=== PATIENT | male | born 1970 | race Caucasian/White ===

== ENCOUNTER 2022-07-08 09:46 | Emergency (ER) | payer BC, SELFPAY ==
--- NOTE | ~2022-07-08 | CT_ITS ---
EXAMINATION: CT ABDOMEN AND PELVIS WITHOUT CONTRAST CLINICAL INFORMATION: Left flank pain radiating to LLQ. COMPARISON: None TECHNIQUE: Multidetector volumetric imaging was performed from the superior aspect of the liver through the pubic symphysis. Sagittal and coronal reformatted images were obtained on the technologist's workstation. This CT examination was performed using dose optimization techniques as appropriate, variously including the following: *Automated exposure control *Adjustment of mA and/or kV according to patient size (this includes techniques or standardized protocols for targeted exams where dose is matched to indication/reason for exam; i.e. extremities or head) *Use of iterative reconstruction technique DLP: 776 mGy-cm FINDINGS: LUNG BASES: The lung bases appear clear, with no evidence of inflammation or nodules. LIVER, GALLBLADDER, AND BILIARY TREE: Fatty infiltration of the liver. Liver appears unremarkable in size and shape. No focal hepatic lesion or biliary ductal dilatation is appreciated. Unremarkable appearance of the gallbladder. PANCREAS: Unremarkable SPLEEN: Unremarkable ADRENAL GLANDS: Unremarkable KIDNEYS AND URETERS: The kidneys appear unremarkable in size, shape, and attenuation. 0.4 cm proximal left ureteral stone with associated mild left hydronephrosis and proximal hydroureter. At least two, 0.3 cm or less, nonobstructing left upper pole collecting system stones. BLADDER: Unremarkable GASTROINTESTINAL TRACT: Question small hiatus hernia. The small and large bowel appear unremarkable. No diverticulosis. Normal-appearing distal ileum and vermiform appendix. ABDOMINAL WALL: No significant hernia is appreciated. LYMPH NODES: No evidence of adenopathy by size criteria. VASCULAR: Unremarkable PELVIC VISCERA: Unremarkable OSSEOUS STRUCTURES: Severe disc space narrowing at L5-S1. CT/CT abdomen pelvis wo IV con IMPRESSION: 0.4 cm proximal left ureteral stone with associated mild left hydronephrosis and proximal hydroureter.
[2022-07-08 09:54] VITALS: BP 157/91; PULSE 77; RESP 14; O2SAT 100; BMI 31.5
--- NOTE | 2022-07-08 10:25 | ED.GENADULT ---
[facility] - General Adult General Chief complaint: Back Pain/Injury Stated complaint: lower back pain Time Seen by Provider: 07/08/22 09:59 Source: patient Mode of arrival: ambulatory History of Present Illness HPI narrative: 51-year-old male with no significant past medical history presenting to the ED complaining of left flank pain radiating to LLQ since yesterday. Admits pain is intermittent in intensity with associated nausea and vomiting. Does report heavy lifting at work, denies injury or trauma or radiation down the lower extremities. Denies fever, chills, dysuria/hematuria, urinary incontinence/retention, testicular/scrotal pain. Took Motrin without relief Onset (ago): hour(s) Related Data Previous Rx's Medication Instructions Recorded hydrocodone 5 mg-acetaminophen 325 1 tab PO Q8H PRN pain, severe 3 07/08/22 mg tablet days #9 tabs ketorolac 10 mg tablet 10 mg PO TID PRN pain 5 days #15 07/08/22 tabs ondansetron 4 mg disintegrating 4 mg PO Q8H PRN nausea and 07/08/22 tablet vomiting #10 tabs tamsulosin 0.4 mg capsule (Flomax) 0.4 mg PO DAILY #14 caps 07/08/22 Allergies Allergy/AdvReac Type Severity Reaction Status Date / Time No Known Allergies Allergy Verified 07/08/22 10:14 Review of Systems Review of Systems: Constitutional: No Fever, No Chills, No Fatigue, No Malaise ENT/Mouth: No No Ear Pain, No Nasal Congestion, No Sinus Pain, No Hoarseness, No sore throat, No Rhinorrhea, No Swallowing Difficulty Eyes: No Eye Pain, No Swelling, No Redness, No Vision Changes Cardiovascular: No Chest Pain, No SOB, No Palpitations Respiratory: No Cough, No Sputum, No Dyspnea Gastrointestinal: + Nausea, + Vomiting, No Diarrhea, No Constipation, + Abdominal pain Genitourinary: No irregular bleeding, No Dysuria, No Urinary Frequency, No Hematuria, No Urinary Incontinence/retention, No Urgency, No Flank Pain Musculoskeletal: No joint pain, No Myalgias, No Joint Swelling Skin: No Skin Lesions, No rash Neuro: No Weakness, No Numbness, No Paresthesias, No Dizziness, No Headache Yes all other systems are reviewed and are negative Constitutional: Constitutional: Reports as per [facility] Past Medical History Attestation statement: The following information was validated with the patient. Social History Social History Advance Directives: No Advance Directives Information Provided: No Physical Exam ED Vital Signs: Vital Signs - 24 hr 07/08/22 09:54 Pulse Rate 77 Respiratory Rate 14 Blood Pressure 157/91 H Pulse Oximetry 100 Oxygen Delivery Method Room Air BMI result Body Mass Index 31.5 Const Other: Diaphoretic, appears in pain General: cooperative, healthy appearing and no acute distress Orientation/consciousness: patient oriented x3 Limitations: no limitations HENMT Head: Yes normal to inspection and Yes atraumatic Ears: hearing grossly normal bilaterally General nose exam: Normal external nose present Face and sinus: Yes normal facial exam Eyes General: appearance normal, both eyes and all related structures EOM: EOMs intact bilaterally Neck Neck: Yes normal visual inspection and Yes no meningeal signs Resp Effort & Inspection: normal respiratory effort and no respiratory distress Auscultation: clear to auscultation bilaterally Cardio Rate: regular rate Heart sounds: S1 normal heart sound present and S2 normal heart sound present GI Inspection: Yes normal to inspection Palpation (GI): Soft to palpation, Tenderness to palpation present (GI) in the LLQ; with no rebound tenderness, no guarding and not rigid General: Yes no CVA tenderness Back/Spine/Pelvis Back: no CVA tenderness Skin Rashes: no rashes Wounds: no wounds Neuro General: patient oriented x3, tone normal and no meningeal signs Gait exam (Neuro): Normal gait present Extrem General: Yes normal to inspection Course Course Course Narrative: -1124--no leukocytosis. BUN, T and D bili & ALT mildly elevated 1221--CT abdomen pelvis wo IV con IMPRESSION: ? 0.4 cm proximal left ureteral stone with associated mild left hydronephrosis and proximal hydroureter. > patient still in significant amount of pain, will give 2nd dose of IV morphine, has been unable to provide urine at this time. Will reach out to urology -1228--spoke with Urology, Dr. De Los Santos, will continue to observe patient/try to get his pain controlled. Receiving 2L IVF, she recommended changing 2nd dose of Morphine to Dilaudid. will continue to monitor -UA not infected -1344--patient reports symptomatic improvement at present. Tolerating p.o. in the ED. Desires to be discharged home. Results discussed with patient including worrisome signs and symptoms and strict return precautions, and when to return to the emergency department. They verbalized understanding and feel safe for discharge at this time. Medical Decision Making MDM Narrative Medical decision making narrative: 51-year-old male with no significant past medical history presenting to the ED complaining of left flank pain radiating to LLQ since yesterday. On exam vital signs stable, diaphoretic/appears in pain, abdomen soft with left lower quadrant tenderness, no rebound or guarding, no CVA tenderness. Concern for renal stone/pyelo vs diverticulitis vs UTI. Musculoskeletal pain on differential. Low suspicion for cauda equina/cord compression or appendicitis. Plan: Labs, UA, CT AP, IVF, pain management Medical Records Medical records reviewed: Yes I reviewed the patient's medical records. Lab Data Lab results reviewed: Yes I reviewed the patient's lab results. Result diagrams: 07/08/22 10:48 07/08/22 10:48 Labs: Lab Results 07/08/22 07/08/22 07/08/22 Range/Units 10:48 10:48 12:42 WBC 7.6 (4.8-10.8) X10*3/uL RBC 5.85 H (4.60-5.80) X10*6/uL Hgb 17.2 (14.0-18.0) g/dl Hct 48.8 (42.0-52.0) % MCV 83.4 (80.0-98.0) fL MCH 29.4 (27.0-33.0) pg MCHC 35.2 (31.0-36.0) g/dl RDW 12.7 (11.0-16.0) % Plt Count 223 (160-400) X10*3/uL MPV 9.0 L (9.4-12.4) fL Immature Gran % (Auto) 0.1 (0.0-0.4) % Neut % (Auto) 75.5 H (45-73) % Lymph % (Auto) 15.9 L (20-40) % [place] % (Auto) 6.9 (2-11) % Eos % (Auto) 1.2 (0-4) % Baso % (Auto) 0.4 (0-2) % Lymph # (Auto) 1.2 (1.2-4.9) X10*3/uL [place] # (Auto) 0.5 (0.1-1.2) X10*3/uL Eos # (Auto) 0.1 (0.0-0.4) X10*3/uL Baso # (Auto) 0.0 (0.0-0.2) X10*3/uL Abs Immat Gran (auto) 0.01 (0.00-0.03) X10*3/uL Absolute Neuts (auto) 5.7 (2.0-8.3) x10*3/uL Absolute Nucleated RBC 0.000 (0.0-0.012) X10*3/uL Nucleated RBC % (auto) 0.0 (0.0-0.2) /100WBC Sodium 137 (135-145) mmol/L Potassium 4.2 (3.3-5.1) mmol/L Chloride 102 (96-108) mmol/L Carbon Dioxide 24 (22-29) mmol/L Anion Gap 15 (12-20) BUN 18 H (9-16) mg/dL Creatinine 1.11 (0.5-1.4) mg/dL Estim Creat Clear Calc 91.1 Estimated GFR > 60 Random Glucose 126 H (60-115) mg/dL Calcium 9.7 (8.4-10.2) mg/dL Magnesium 2.0 (1.6-2.6) mg/dL Total Bilirubin 1.9 H (0.0-1.0) mg/dL Direct Bilirubin 0.6 H (0.0-0.5) mg/dL AST 30 (5-37) U/L ALT 62 H (0-40) U/L Alkaline Phosphatase 80 (39-117) U/L Total Protein 7.6 (6.5-8.0) g/dL Albumin 4.6 (3.5-5.0) g/dL Lipase 18 (8-78) U/L Urine Color Yellow Urine Appearance Clear Urine pH 7.0 (5.0-9.0) Ur Specific [place] 1.020 (1.005-1.025) Urine Protein 30 (1+) H (Neg-Trace) mg/dL Urine Glucose (UA) Negative (Negative) mg/dL Urine Ketones Negative (Negative) mg/dL Urine Blood Large (3+) H (Negative) Urine Nitrite Negative (Negative) Ur Leukocyte Esterase Small (1+) H (Negative) Urine RBC >20 H (0-2) /HPF Urine WBC 0-5 (0-5) /HPF Ur Squamous Epith Cells 0-2 (0-2) /HPF Urine Bacteria None Seen (None Seen) Hyaline Casts 3-5 (0-2) /LPF Discharge Plan Discharge Clinical Impression: Left ureteral calculus Patient Disposition: Home, Self-Care Instructions: Ureteral Stones (ED) Additional Instructions: You have a small stone in her left proximal ureter with some hydronephrosis and hydroureter This should pass on its own Ketorolac is an anti-inflammatory/pain medication, take with food. Zofran as an antinausea medication, take as needed Flomax to help dilate the ureter [place] was not opiate pain medication, take only when pain is severe for the next 3 days. UA to have close follow-up with Urology If symptoms persist or worsen, pain becomes severe/unbearable, your vomiting, high fever are unable to eat or drink return to the ED Prescriptions: New ketorolac 10 mg tablet 10 mg PO TID PRN (Reason: pain) 5 Days Qty: 15 0RF hydrocodone-acetaminophen 5-325 mg tablet 1 tab PO Q8H PRN (Reason: pain, severe) 3 Days Qty: 9 0RF Rx Instructions: Partial Fill upon patient request. tamsulosin [Flomax] 0.4 mg capsule 0.4 mg PO DAILY Qty: 14 0RF ondansetron 4 mg tablet,disintegrating 4 mg PO Q8H PRN (Reason: nausea and vomiting) Qty: 10 0RF Referrals: [facility] [Provider Group] - 1 week
[2022-07-08 10:55] LABS: MANUAL DIFF FLAG NO
[2022-07-08] MEDS: Morphine Sulfate 2 MG/ML CARTRIDGE IVPUSH (10:56)
[2022-07-08] MEDS: Ketorolac Tromethamine 15 MG/ML VIAL IVPUSH ×2 (10:56→11:29)
[2022-07-08] MEDS: ondansetron HCL 4 MG/2 ML VIAL IVPUSH (10:56)
[2022-07-08] MEDS: 0.9 % Sodium Chloride 1,000 ML 999 ML IV ×2 (10:57→12:39)
[2022-07-08 10:58] LABS: Basophils Percent Auto 0.4 % (0-2); Eosinophils Absolute Auto 0.1 X10*3/uL (0.0-0.4); Eosinophils Percent Auto 1.2 % (0-4); Hematocrit 48.8 % (42.0-52.0); Hemoglobin 17.2 g/dl (14.0-18.0); Imm Gran Abs Auto 0.01 X10*3/uL (0.00-0.03); Imm Gran Pct Auto 0.1 % (0.0-0.4); Lymphocytes Absolute Auto 1.2 X10*3/uL (1.2-4.9); Lymphocytes Percent Auto 15.9 % (20-40); Mean Corpuscular HGB Conc 35.2 g/dl (31.0-36.0); Mean Corpuscular Hemoglobin 29.4 pg (27.0-33.0); Mean Corpuscular Volume 83.4 fL (80.0-98.0); Monocytes Absolute Auto 0.5 X10*3/uL (0.1-1.2); Monocytes Percent Auto 6.9 % (2-11); Neutrophils Absolute Auto 5.7 x10*3/uL (2.0-8.3); Neutrophils Percent Auto 75.5 % (45-73); Platelet Count 223 X10*3/uL (160-400); Red Blood Count 5.85 X10*6/uL (4.60-5.80); Red Cell Distribution Width 12.7 % (11.0-16.0); White Blood Count 7.6 X10*3/uL (4.8-10.8)
[2022-07-08 11:15] LABS: Alanine Aminotransferase 62 U/L (0-40); Albumin Level 4.6 g/dL (3.5-5.0); Alkaline Phosphatase 80 U/L (39-117); Anion Gap 15 (12-20); Aspartate Amino Transferase 30 U/L (5-37); Bilirubin Direct 0.6 mg/dL (0.0-0.5); Bilirubin Total 1.9 mg/dL (0.0-1.0); Blood Urea Nitrogen 18 mg/dL (9-16); Calcium 9.7 mg/dL (8.4-10.2); Carbon Dioxide 24 mmol/L (22-29); Chloride 102 mmol/L (96-108); Creatinine Clr Calc Pharmacy 91.1; Estimated Glomerular Filt Rate > 60; Glucose Random 126 mg/dL (60-115); Lipase 18 U/L (8-78); Potassium 4.2 mmol/L (3.3-5.1); Sodium 137 mmol/L (135-145); Total Protein 7.6 g/dL (6.5-8.0)
[2022-07-08] MEDS: HYDROmorphone HCl 1 MG/ML SYRINGE IVPUSH (12:39)
[2022-07-08] MEDS: Tamsulosin HCL 0.4 MG CAPSULE PO (12:40)
[2022-07-08 12:51] LABS: Appearance Urine Clear; Color Urine Yellow; Glucose Urine UA Negative (Negative); Leukocyte Esterase Urine Small (1+) (Negative); Nitrite Urine Negative (Negative); UMIC TRIGGER UACC YES; Urine Blood Large (3+) (Negative); Urine Ketones Negative (Negative); Urine Protein 30 (1+) mg/dL (Neg-Trace)
[2022-07-08 13:03] LABS: Bacteria Urine None Seen (None Seen); RBC Urine >20 /HPF (0-2); Squamous Epithelial Cell Urine 0-2 /HPF (0-2); UACC Culture Trigger YES; WBC Urine 0-5 /HPF (0-5)
--- NOTE | 2022-07-08 13:45 | PC.NURSE ---
Pt states pain is much better, trey seth provided
[2022-07-08 13:50] VITALS: BP 157/91; PULSE 77; RESP 16; O2SAT 99
== END 2022-07-08 13:56 | disposition home or self-care (01) ==
PROVIDERS: Physician Assistant; Emergency Provider Emergency Medicine
DX: N13.2 Hydronephrosis with renal and ureteral calculous obstruction (principal); R10.9 Unspecified abdominal pain
CPT/HCPCS: 36415; 74176; 80048; 80076; 81001; 83690; 83735; 85025; 87086; 96361; 96374; 96375; 96376; 99283; 99284; J1170; J1885; J2270; J2405

== ENCOUNTER 2022-09-07 11:41 | Emergency (ER) | payer BC, SELFPAY ==
--- NOTE | ~2022-09-07 | XR_ITS ---
EXAMINATION: XR CHEST CLINICAL INFORMATION: Cough, chest pain and shortness of breath COMPARISON: None TECHNIQUE: 2 views of the chest were obtained. FINDINGS: The lungs are well-expanded and clear of acute pneumonic process. The heart size and pulmonary vascularity is normal. No gross bony abnormality seen. XR/XR chest 2V IMPRESSION: Unremarkable chest exam.
[2022-09-07 11:43] VITALS: BP 150/99; PULSE 114; RESP 18; TEMP 38.7; O2SAT 98; BMI 37.8
--- NOTE | 2022-09-07 11:52 | ED.URI ---
HPI - URI/Sore Throat General Chief Complaint: Upper Respiratory Symptoms <Zack Bunn MD - Last Filed: 09/07/22 11:54> Stated Complaint: Flu Symptoms <Zack Bunn MD - Last Filed: 09/07/22 11:54> Time Seen by Provider: 09/07/22 12:59 <Zack Bunn MD - Last Filed: 09/07/22 11:54> Source: patient and family <SAMMI Haynes - Last Filed: 09/07/22 14:23> Mode of arrival: ambulatory <SAMMI Haynes Last Filed: 09/07/22 14:23> Limitations: no limitations <SAMMI Haynes Last Filed: 09/07/22 14:23> History of Present Illness HPI Narrative: 52-year-old male who is presenting to the ED with complaints of generalized fatigue /malaise, fevers, chills, sore throat/nasal congestion/ rhinorrhea, cough, chest pain only with coughing, shortness of breath, nausea /vomiting for the past 3 days worse today. his ex- who is at bedside reports she was recently diagnosed with RSV. Although she has not been around him. He reports he tried to eat some crackers this morning although threw that up as well. Denies any other sick contacts. Denies recent travel. Denies any dyspnea on exertion, orthopnea, palpitations, abdominal pain, diarrhea constipation, lower extremity edema or calf tenderness or any other symptoms complaints or concerns at this time. <SAMMI Haynes - Last Filed: 09/07/22 14:23> MD elicited complaint: fever, cough, sore throat, rhinorrhea and nasal congestion <SAMMI Haynes Last Filed: 09/07/22 14:23> Onset (ago): day(s) (3) <SAMMI Haynes Last Filed: 09/07/22 14:23> Consistency: constant and progressively worsening <SAMMI Haynes Last Filed: 09/07/22 14:23> Severity: moderate <SAMMI Haynes Last Filed: 09/07/22 14:23> Description of mucous: clear, watery and yellow <SAMMI Haynes Last Filed: 12/21/22 14:23> Able to tolerate fluids by mouth: Yes <SAMMI Haynes - Last Filed: 09/07/22 14:23> Exacerbating factors: swallowing <SAMMI Haynes Last Filed: 09/07/22 14:23> Relieving factors: nothing <SAMMI Haynes - Last Filed: 09/07/22 14:23> Context: sick contacts <SAMMI Haynes - Last Filed: 09/07/22 14:23> Associated symptoms: fever, chills, myalgias, headache, rhinorrhea, nasal congestion, sore throat, cough, chest pain, shortness of breath, nausea and vomiting <SAMMI Haynes - Last Filed: 09/07/22 14:23> Treatments prior to arrival: none <SAMMI Haynes Last Filed: 09/07/22 14:23> Related Data Home Medications: Previous Rx's Medication Instructions Recorded hydrocodone 5 mg-acetaminophen 325 1 tab PO Q8H PRN pain, severe 3 07/08/22 mg tablet days #9 tabs ketorolac 10 mg tablet 10 mg PO TID PRN pain 5 days #15 07/08/22 tabs ondansetron 4 mg disintegrating 4 mg PO Q8H PRN nausea and 07/08/22 tablet vomiting #10 tabs tamsulosin 0.4 mg capsule (Flomax) 0.4 mg PO DAILY #14 caps 07/08/22 acetaminophen 500 mg tablet 1,000 mg PO QID PRN fever or pain 09/07/22 (Tylenol Extra Strength) #14 tabs ibuprofen 800 mg tablet 800 mg PO Q8H PRN pain #14 tabs 09/07/22 ondansetron HCl 4 mg tablet 4 mg PO Q8H #14 tabs 09/07/22 <Zack Bunn MD - Last Filed: 09/07/22 11:54> Allergies/Adverse Reactions: Allergies Allergy/AdvReac Type Severity Reaction Status Date / Time No Known Allergies Allergy Verified 07/08/22 10:14 <Zack Bunn MD - Last Filed: 09/07/22 11:54> Review of Systems Review of Systems: Constitutional : + Fevers/ chills/fatigue/malaise, No Weight loss, No Night Sweatse ENT/Mouth : No Hearing loss, No Ear Pain, + Nasal Congestion, No Sinus Pain, No Hoarseness, + sore throat, + Rhinorrhea, No Swallowing Difficulty Eyes: No Eye Pain, No Swelling, No Redness, No Foreign Body, No Discharge, No Vision Changes Cardiovascular : No Chest Pain, No SOB, No Dyspnea on Exertion, No Orthopnea, No Edema, No Palpitations Respiratory : + Cough, + Sputum, No Wheezing, No Smoke Exposure, No Dyspnea Gastrointestinal : + Nausea, + Vomiting, No Diarrhea, No Constipation, No abdominal Pain, No Hematochezia, No Melena Genitourinary : no irregular bleeding, No Dysuria, No Urinary Frequency, No Hematuria, No Urinary Incontinence, No Urgency, No Flank Pain, No Urinary Flow Changes, No Hesitancy Musculoskeletal : No joint pain, + Myalgias, No Joint Swelling Skin : No Skin Lesions, No rash Neuro : No Weakness, No Numbness, No Paresthesias, No Loss of Consciousness, No Dizziness, No Headache Psych : No Anxiety/Panic, No Depression, No SI/HI/AH/VH, No Social Issues, Heme/Lymph: No Bruising, No Bleeding,No Lymphadenopathy Endocrine : No Polyuria, No Polydipsia, No Temperature Intolerance <SAMMI Haynes - Last Filed: 09/07/22 14:23> Yes all other systems are reviewed and are negative <SAMMI Haynes - Last Filed: 09/07/22 14:23> [facility] Past Medical History Attestation statement: The following information was validated with the patient. <SAMMI Haynes - Last Filed: 09/07/22 14:23> Source: old records reviewed, obtained from family and nursing notes reviewed <SAMMI Haynes - Last Filed: 09/07/22 14:23> Social History Social History: Social History Advance Directives: No Advance Directives Information Provided: Yes <Zack Bunn MD - Last Filed: 09/07/22 11:54> Physical Exam Vital Signs: Vital Signs: Last Vital Signs Temp 101.6 F H 09/07/22 11:43 Pulse 114 H 09/07/22 11:43 Resp 18 09/07/22 11:43 BP 150/99 H 09/07/22 11:43 Pulse Ox 98 09/07/22 11:43 O2 Del Method 09/07/22 11:43 BMI result Body Mass Index 37.8 <Zack Bunn MD - Last Filed: 09/07/22 11:54> Vital Signs: Last Vital Signs Temp 101.6 F H 09/07/22 11:43 Pulse 114 H 09/07/22 11:43 Resp 18 09/07/22 11:43 BP 150/99 H 09/07/22 11:43 Pulse Ox 98 09/07/22 11:43 O2 Del Method 09/07/22 11:43 BMI result Body Mass Index 37.8 vital signs have been reviewed as normal and appeared to be correct. Blood pressure 150/99. Heart rate 114. Respiration rate normal. Temperature 101.6. Oxygen saturation normal. <SAMMI Haynes - Last Filed: 09/07/22 14:23> Appearance: Alert. Oriented X3. No acute distress. Head: Normal external exam. Normocephalic. Atraumatic. Eyes: PERRLA. EOMI. Conjunctiva and sclera normal. Eyelids normal. ENT: EAC normal. TM's Normal. Pharynx normal. Uvula midline. Moist mucous membranes. No lesions/ulcerations or masses noted on the tongue. Normal voice. No trismus noted. No drooling noted. No muffled voice noted. Neck: Normal inspection. Neck supple. FROM. No adenopathy. Thyroid Normal. No tracheal deviation noted. No crepitus is noted. No meningeal signs. No neck mass noted. No signs of trauma noted. CVS: Normal heart rate and rhythm. Heart sound normal. Pulses normal throughout. No murmurs/rales/gallops. Respiratory: No respiratory distress. Painless inspiration. Breath sounds normal. No wheezes/rales/rhonchi noted. Chest nontender. No crepitus is noted. No accessory muscle usage noted or decreased air movement noted. No signs of trauma. Abdomen: Soft and nontender. Nondistended. No guarding. No rigidity. Bowel sounds normal in all 4 quadrants. No distention noted. No organomegaly noted. No visible injury noted. No rebound tenderness. Negative Rovsing sign. Negative obturator's sign. Negative psoas sign. Negative Skinner sign. Back: No CVA tenderness. Full range of motion noted. Nontender. No signs of trauma. Patient neuro intact bilaterally and distally on all 4 extremities. Patient's reflexes intact bilaterally and distally on all 4 extremities. No rashes/lesion/induration/fluctuance or signs of infection noted. Skin: Skin warm and dry. Normal skin color. Normal skin turgor. No rashes/lesions/lacerations noted. Extremities: No lower extremity edema. No calf tenderness is noted. Extremities exhibit normal range of motion and nontender. Neuro: Oriented X 3. No motor deficit. No sensory deficit. Reflexes normal. Normal steady gait. No focal neuro deficits noted. CN's II-XII intact bilaterally? Vascular: + radial pulses/+ 2 distal pedal pulses/+2 dorsalis pedis b/l. Normal cap refill. No cyanosis noted to upper extremity nails and lower extremity toes nails. <SAMMI Haynes - Last Filed: 09/07/22 14:23> Course Course Course Narrative: RME: 52-year-old male who presents emergency department for evaluation of 3 days of flu-like illness with symptoms including fever, chills, sore throat, cough, chest pain, shortness of breath. Patient is experiencing chest pain with coughing. Vital signs revealed an elevated BP, tachycardia and fever of 101.6. I ordered chest x-ray two view to rule out pneumonia, RSV, COVID, influenza and rapid strep testing. Patient's fever was treated with ibuprofen 800 mg orally. Patient will be placed back in the waiting room. He was given a mask and instructed to wear this at all times. <Zack Bunn MD - Last Filed: 09/07/22 11:54> Reevaluation(s) Reevaluation #1: 52-year-old male who is presenting to the ED with complaints of generalized fatigue /malaise, fevers, chills, sore throat/nasal congestion/ rhinorrhea, cough, chest pain only with coughing, shortness of breath, nausea /vomiting for the past 3 days worse today. his ex- who is at bedside reports she was recently diagnosed with RSV. Although she has not been around him. He reports he tried to eat some crackers this morning although threw that up as well. Denies any other sick contacts. Denies recent travel. Denies any dyspnea on exertion, orthopnea, palpitations, abdominal pain, diarrhea constipation, lower extremity edema or calf tenderness or any other symptoms complaints or concerns at this time. Plan: will obtain labs and provide a L of IV fluids patient tested positive when he was tested outside in the waiting room for influenza A. Negative for COVID and RSV. Chest x-ray is also within normal limits no acute processes noted. <SAMMI Haynes - Last Filed: 09/07/22 14:23> Time: 13:20 <SAMMI Haynse - Last Filed: 09/07/22 14:23> Reevaluation #2: Labs reviewed patient's total bilirubin 2.1. ALT 53. Otherwise all other labs are within normal limits. Patient positive for influenza A. Negative for COVID/RSV. Patient negative for strep. Chest x-ray within normal limits no acute processes noted. Therefore at this time patient can be discharged with symptomatic treatment as patient is tolerating p.o. at this time instructions return if any new or worsening symptoms and to follow up with primary care provider. Patient understands agrees with this plan. <SAMMI Haynes - Last Filed: 09/07/22 14:23> Time: 14:18 <SAMMI Haynes - Last Filed: 09/07/22 14:23> Medications Administered Generic Name Dose Route Start Last Admin Trade Name Freq PRN Reason Stop Dose Admin Sodium Chloride 1,000 mls @ 999 mls/hr 09/07/22 13:30 09/07/22 13:35 Ns IVCONT 09/07/22 14:30 999 mls/hr .Q1H1M SAEID Administration Discontinued Medications Generic Name Dose Route Start Last Admin Trade Name Freq PRN Reason Stop Dose Admin Ibuprofen 800 mg 09/07/22 11:50 09/07/22 11:53 Ibuprofen 800 Mg Tablet PO 09/07/22 11:51 800 mg ONCE STA Administration Ondansetron HCl 4 mg 09/07/22 13:18 09/07/22 13:33 Ondansetron Hcl 4 Mg/2 Ml Vial IVPUSH 09/07/22 13:19 4 mg ONCE ONE Administration <Zack Bunn MD - Last Filed: 09/07/22 11:54> Medications Administered Generic Name Dose Route Start Last Admin Trade Name Freq PRN Reason Stop Dose Admin Sodium Chloride 1,000 mls @ 999 mls/hr 09/07/22 13:30 09/07/22 13:35 Ns IVCONT 09/07/22 14:30 999 mls/hr .Q1H1M SAEID Administration Discontinued Medications Generic Name Dose Route Start Last Admin Trade Name Freq PRN Reason Stop Dose Admin Ibuprofen 800 mg 09/07/22 11:50 09/07/22 11:53 Ibuprofen 800 Mg Tablet PO 09/07/22 11:51 800 mg ONCE STA Administration Ondansetron HCl 4 mg 09/07/22 13:18 09/07/22 13:33 Ondansetron Hcl 4 Mg/2 Ml Vial IVPUSH 09/07/22 13:19 4 mg ONCE ONE Administration <SAMMI Haynes - Last Filed: 09/07/22 14:23> Medical Decision Making Lab Data MDM Lab Attestation statement: I reviewed the patient's lab results. <SAMMI Haynes - Last Filed: 09/07/22 14:23> Result Diagrams: : 09/07/22 13:26 09/07/22 13:26 <Zack Bunn MD - Last Filed: 09/07/22 11:54> Labs: Lab Results 09/07/22 09/07/22 09/07/22 Range/Units 11:49 11:49 13:26 WBC 7.1 (4.8-10.8) X10*3/uL RBC 5.78 (4.60-5.80) X10*6/uL Hgb 16.9 (14.0-18.0) g/dl Hct 48.8 (42.0-52.0) % MCV 84.4 (80.0-98.0) fL MCH 29.2 (27.0-33.0) pg MCHC 34.6 (31.0-36.0) g/dl RDW 13.0 (11.0-16.0) % Plt Count 181 (160-400) X10*3/uL MPV 8.9 L (9.4-12.4) fL Immature Gran % (Auto) 0.3 (0.0-0.4) % Neut % (Auto) 81.8 H (45-73) % Lymph % (Auto) 8.4 L (20-40) % Surry % (Auto) 8.4 (2-11) % Eos % (Auto) 0.7 (0-4) % Baso % (Auto) 0.4 (0-2) % Lymph # (Auto) 0.6 L (1.2-4.9) X10*3/uL [place]ry # (Auto) 0.6 (0.1-1.2) X10*3/uL Eos # (Auto) 0.1 (0.0-0.4) X10*3/uL Baso # (Auto) 0.0 (0.0-0.2) X10*3/uL Abs Immat Gran (auto) 0.02 (0.00-0.03) X10*3/uL Absolute Neuts (auto) 5.8 (2.0-8.3) x10*3/uL Absolute Nucleated RBC 0.000 (0.0-0.012) X10*3/uL Nucleated RBC % (auto) 0.0 (0.0-0.2) /100WBC PT (10.0-13.1) SEC INR (0.9-1.1) Sodium (135-145) mmol/L Potassium (3.3-5.1) mmol/L Chloride (96-108) mmol/L Carbon Dioxide (22-29) mmol/L Anion Gap (12-20) BUN (9-16) mg/dL Creatinine (0.5-1.4) mg/dL Estim Creat Clear Calc Estimated GFR Random Glucose (60-115) mg/dL Calcium (8.4-10.2) mg/dL Magnesium (1.6-2.6) mg/dL Total Bilirubin (0.0-1.0) mg/dL AST (5-37) U/L ALT (0-40) U/L Alkaline Phosphatase (39-117) U/L Total Protein (6.5-8.0) g/dL Albumin (3.5-5.0) g/dL Influenza Type A (PCR) POSITIVE A (Negative) Influenza Type B (PCR) NEGATIVE (Negative) RSV RNA Qual (PCR) NEGATIVE (Negative) SARS-CoV-2 RNA (RT-PCR) NEGATIVE (Negative) S. pyogenes GrpA MANUEL Negative (Negative) 09/07/22 09/07/22 Range/Units 13:26 13:26 WBC (4.8-10.8) X10*3/uL RBC (4.60-5.80) X10*6/uL Hgb (14.0-18.0) g/dl Hct (42.0-52.0) % MCV (80.0-98.0) fL MCH (27.0-33.0) pg MCHC (31.0-36.0) g/dl RDW (11.0-16.0) % Plt Count (160-400) X10*3/uL MPV (9.4-12.4) fL Immature Gran % (Auto) (0.0-0.4) % Neut % (Auto) (45-73) % Lymph % (Auto) (20-40) % Surry % (Auto) (2-11) % Eos % (Auto) (0-4) % Baso % (Auto) (0-2) % Lymph # (Auto) (1.2-4.9) X10*3/uL Surry # (Auto) (0.1-1.2) X10*3/uL Eos # (Auto) (0.0-0.4) X10*3/uL Baso # (Auto) (0.0-0.2) X10*3/uL Abs Immat Gran (auto) (0.00-0.03) X10*3/uL Absolute Neuts (auto) (2.0-8.3) x10*3/uL Absolute Nucleated RBC (0.0-0.012) X10*3/uL Nucleated RBC % (auto) (0.0-0.2) /100WBC PT 12.9 (10.0-13.1) SEC INR 1.1 (0.9-1.1) Sodium 135 (135-145) mmol/L Potassium 4.2 (3.3-5.1) mmol/L Chloride 102 (96-108) mmol/L Carbon Dioxide 25 (22-29) mmol/L Anion Gap 12 (12-20) BUN 10 (9-16) mg/dL Creatinine 0.81 (0.5-1.4) mg/dL Estim Creat Clear Calc 119.0 Estimated GFR > 60 Random Glucose 103 (60-115) mg/dL Calcium 9.3 (8.4-10.2) mg/dL Magnesium 1.8 (1.6-2.6) mg/dL Total Bilirubin 2.1 H (0.0-1.0) mg/dL AST 24 (5-37) U/L ALT 53 H (0-40) U/L Alkaline Phosphatase 92 (39-117) U/L Total Protein 7.4 (6.5-8.0) g/dL Albumin 4.6 (3.5-5.0) g/dL Influenza Type A (PCR) (Negative) Influenza Type B (PCR) (Negative) RSV RNA Qual (PCR) (Negative) SARS-CoV-2 RNA (RT-PCR) (Negative) S. pyogenes GrpA MANUEL (Negative) <Zack Bunn MD - Last Filed: 09/07/22 11:54> Lab Results 09/07/22 09/07/22 09/07/22 Range/Units 11:49 11:49 13:26 WBC 7.1 (4.8-10.8) X10*3/uL RBC 5.78 (4.60-5.80) X10*6/uL Hgb 16.9 (14.0-18.0) g/dl Hct 48.8 (42.0-52.0) % MCV 84.4 (80.0-98.0) fL MCH 29.2 (27.0-33.0) pg MCHC 34.6 (31.0-36.0) g/dl RDW 13.0 (11.0-16.0) % Plt Count 181 (160-400) X10*3/uL MPV 8.9 L (9.4-12.4) fL Immature Gran % (Auto) 0.3 (0.0-0.4) % Neut % (Auto) 81.8 H (45-73) % Lymph % (Auto) 8.4 L (20-40) % Surry % (Auto) 8.4 (2-11) % Eos % (Auto) 0.7 (0-4) % Baso % (Auto) 0.4 (0-2) % Lymph # (Auto) 0.6 L (1.2-4.9) X10*3/uL Surry # (Auto) 0.6 (0.1-1.2) X10*3/uL Eos # (Auto) 0.1 (0.0-0.4) X10*3/uL Baso # (Auto) 0.0 (0.0-0.2) X10*3/uL Abs Immat Gran (auto) 0.02 (0.00-0.03) X10*3/uL Absolute Neuts (auto) 5.8 (2.0-8.3) x10*3/uL Absolute Nucleated RBC 0.000 (0.0-0.012) X10*3/uL Nucleated RBC % (auto) 0.0 (0.0-0.2) /100WBC PT (10.0-13.1) SEC INR (0.9-1.1) Sodium (135-145) mmol/L Potassium (3.3-5.1) mmol/L Chloride (96-108) mmol/L Carbon Dioxide (22-29) mmol/L Anion Gap (12-20) BUN (9-16) mg/dL Creatinine (0.5-1.4) mg/dL Estim Creat Clear Calc Estimated GFR Random Glucose (60-115) mg/dL Calcium (8.4-10.2) mg/dL Magnesium (1.6-2.6) mg/dL Total Bilirubin (0.0-1.0) mg/dL AST (5-37) U/L ALT (0-40) U/L Alkaline Phosphatase (39-117) U/L Total Protein (6.5-8.0) g/dL Albumin (3.5-5.0) g/dL Influenza Type A (PCR) POSITIVE A (Negative) Influenza Type B (PCR) NEGATIVE (Negative) RSV RNA Qual (PCR) NEGATIVE (Negative) SARS-CoV-2 RNA (RT-PCR) NEGATIVE (Negative) S. pyogenes GrpA MANUEL Negative (Negative) 09/07/22 09/07/22 Range/Units 13:26 13:26 WBC (4.8-10.8) X10*3/uL RBC (4.60-5.80) X10*6/uL Hgb (14.0-18.0) g/dl Hct (42.0-52.0) % MCV (80.0-98.0) fL MCH (27.0-33.0) pg MCHC (31.0-36.0) g/dl RDW (11.0-16.0) % Plt Count (160-400) X10*3/uL MPV (9.4-12.4) fL Immature Gran % (Auto) (0.0-0.4) % Neut % (Auto) (45-73) % Lymph % (Auto) (20-40) % Surry % (Auto) (2-11) % Eos % (Auto) (0-4) % Baso % (Auto) (0-2) % Lymph # (Auto) (1.2-4.9) X10*3/uL Surry # (Auto) (0.1-1.2) X10*3/uL Eos # (Auto) (0.0-0.4) X10*3/uL Baso # (Auto) (0.0-0.2) X10*3/uL Abs Immat Gran (auto) (0.00-0.03) X10*3/uL Absolute Neuts (auto) (2.0-8.3) x10*3/uL Absolute Nucleated RBC (0.0-0.012) X10*3/uL Nucleated RBC % (auto) (0.0-0.2) /100WBC PT 12.9 (10.0-13.1) SEC INR 1.1 (0.9-1.1) Sodium 135 (135-145) mmol/L Potassium 4.2 (3.3-5.1) mmol/L Chloride 102 (96-108) mmol/L Carbon Dioxide 25 (22-29) mmol/L Anion Gap 12 (12-20) BUN 10 (9-16) mg/dL Creatinine 0.81 (0.5-1.4) mg/dL Estim Creat Clear Calc 119.0 Estimated GFR > 60 Random Glucose 103 (60-115) mg/dL Calcium 9.3 (8.4-10.2) mg/dL Magnesium 1.8 (1.6-2.6) mg/dL Total Bilirubin 2.1 H (0.0-1.0) mg/dL AST 24 (5-37) U/L ALT 53 H (0-40) U/L Alkaline Phosphatase 92 (39-117) U/L Total Protein 7.4 (6.5-8.0) g/dL Albumin 4.6 (3.5-5.0) g/dL Influenza Type A (PCR) (Negative) Influenza Type B (PCR) (Negative) RSV RNA Qual (PCR) (Negative) SARS-CoV-2 RNA (RT-PCR) (Negative) S. pyogenes GrpA MANUEL (Negative) <SAMMI Haynes - Last Filed: 09/07/22 14:23> Independent Interpretation I performed an independent interpretation of an: Plain X-Ray <SAMMI Haynes - Last Filed: 09/07/22 14:23> Interpretation: Chest x-ray FINDINGS: The lungs are well-expanded and clear of acute pneumonic process. The heart size and pulmonary vascularity is normal. No gross bony abnormality seen. XR/XR chest 2V IMPRESSION: Unremarkable chest exam. <SAMMI Haynes - Last Filed: 09/07/22 14:23> Radiology Impression Discussion of test interpretation with radiology: I have reviewed the radiologist's reading. <SAMMI Haynes - Last Filed: 09/07/22 14:23> Independent Historian Clinical information obtained from an independent historian. History obtained from or confirmed by: Spouse <SAMMI Haynes - Last Filed: 09/07/22 14:23> Discharge Plan Discharge Clinical Impression: Influenza A <Zack Bunn MD - Last Filed: 09/07/22 11:54> Patient Disposition: Home, Self-Care <Zack Bunn MD - Last Filed: 09/07/22 11:54> Instructions: Influenza (ED), Droplet Precautions (ED) <Zack Bunn MD - Last Filed: 09/07/22 11:54> Prescriptions: New ibuprofen 800 mg tablet 800 mg PO Q8H PRN (Reason: pain) Qty: 14 0RF acetaminophen [Tylenol Extra Strength] 500 mg tablet 1,000 mg PO QID PRN (Reason: fever or pain) Qty: 14 0RF ondansetron HCl 4 mg tablet 4 mg PO Q8H Qty: 14 0RF No Action ketorolac 10 mg tablet 10 mg PO TID PRN (Reason: pain) 5 Days Qty: 15 0RF hydrocodone-acetaminophen 5-325 mg tablet 1 tab PO Q8H PRN (Reason: pain, severe) 3 Days Qty: 9 0RF Rx Instructions: Partial Fill upon patient request. tamsulosin [Flomax] 0.4 mg capsule 0.4 mg PO DAILY Qty: 14 0RF ondansetron 4 mg tablet,disintegrating 4 mg PO Q8H PRN (Reason: nausea and vomiting) Qty: 10 0RF <Zack Bunn MD - Last Filed: 09/07/22 11:54> Referrals: Physician,Unknown J [Primary Care Provider] - ( your PCP) <Zack Bunn MD - Last Filed: 09/07/22 11:54> Stand Alone Forms: Work/School Release <Zack Bunn MD - Last Filed: 09/07/22 11:54> Print Language: Nicaraguan <Zack Bunn MD - Last Filed: 09/07/22 11:54>
[2022-09-07] MEDS: Ibuprofen 800 MG TABLET PO (11:53)
[2022-09-07 12:25] LABS: Strep A Nucleic Acid Negative (Negative)
[2022-09-07 12:47] LABS: Influenza A PCR POSITIVE (Negative); Influenza B PCR NEGATIVE (Negative); Resp Syncy Virus RNA Qual PCR NEGATIVE (Negative); SARS COV2 PCR INHOUSE NEGATIVE (Negative)
[2022-09-07] MEDS: ondansetron HCL 4 MG/2 ML VIAL IVPUSH (13:33)
[2022-09-07 13:35] LABS: MANUAL DIFF FLAG NO
[2022-09-07] MEDS: 0.9 % Sodium Chloride 1,000 ML 999 ML IVCONT (13:35)
[2022-09-07 13:36] LABS: Basophils Percent Auto 0.4 % (0-2); Eosinophils Absolute Auto 0.1 X10*3/uL (0.0-0.4); Eosinophils Percent Auto 0.7 % (0-4); Hematocrit 48.8 % (42.0-52.0); Hemoglobin 16.9 g/dl (14.0-18.0); Imm Gran Abs Auto 0.02 X10*3/uL (0.00-0.03); Imm Gran Pct Auto 0.3 % (0.0-0.4); Lymphocytes Absolute Auto 0.6 X10*3/uL (1.2-4.9); Lymphocytes Percent Auto 8.4 % (20-40); Mean Corpuscular HGB Conc 34.6 g/dl (31.0-36.0); Mean Corpuscular Hemoglobin 29.2 pg (27.0-33.0); Mean Corpuscular Volume 84.4 fL (80.0-98.0); Mean Platelet Volume 8.9 fL (9.4-12.4); Monocytes Absolute Auto 0.6 X10*3/uL (0.1-1.2); Monocytes Percent Auto 8.4 % (2-11); Neutrophils Absolute Auto 5.8 x10*3/uL (2.0-8.3); Neutrophils Percent Auto 81.8 % (45-73); Platelet Count 181 X10*3/uL (160-400); Red Blood Count 5.78 X10*6/uL (4.60-5.80); White Blood Count 7.1 X10*3/uL (4.8-10.8)
[2022-09-07 13:42] LABS: INTERNATIONAL NORM RATIO 1.1 (0.9-1.1); Prothrombin Time 12.9 SEC (10.0-13.1)
[2022-09-07 14:04] LABS: Alanine Aminotransferase 53 U/L (0-40); Albumin Level 4.6 g/dL (3.5-5.0); Alkaline Phosphatase 92 U/L (39-117); Anion Gap 12 (12-20); Aspartate Amino Transferase 24 U/L (5-37); Bilirubin Total 2.1 mg/dL (0.0-1.0); Blood Urea Nitrogen 10 mg/dL (9-16); Calcium 9.3 mg/dL (8.4-10.2); Carbon Dioxide 25 mmol/L (22-29); Chloride 102 mmol/L (96-108); Estimated Glomerular Filt Rate > 60; Glucose Random 103 mg/dL (60-115); Magnesium 1.8 mg/dL (1.6-2.6); Potassium 4.2 mmol/L (3.3-5.1); Sodium 135 mmol/L (135-145); Total Protein 7.4 g/dL (6.5-8.0)
== END 2022-09-07 14:48 | disposition home or self-care (01) ==
PROVIDERS: Physician Assistant Medical; Emergency Provider Student in an Organized Health Care Education/Training Program
DX: J11.1 Influenza due to unidentified influenza virus with other respiratory manifestations (principal); R50.9 Fever, unspecified; R11.2 Nausea with vomiting, unspecified; Z20.822 Contact with and (suspected) exposure to COVID-19
CPT/HCPCS: 0241U; 36415; 71046; 80053; 83735; 85025; 85610; 87651; 96361; 96374; 99284; J2405